=== PATIENT | male | born 1980 | race Two or more races ===

== ENCOUNTER 2021-03-16 10:49 | Outpatient (REF) | payer BC, SELFPAY ==
[2021-03-16 12:00] LABS: MANUAL DIFF FLAG NO
[2021-03-16 12:56] LABS: Eosinophils Absolute Auto 0.3 X10*3/uL (0.0-0.4); Hematocrit 43.6 % (42.0-52.0); Hemoglobin 13.9 g/dl (14.0-18.0); Imm Gran Abs Auto 0.02 X10*3/uL (0.00-0.03); Imm Gran Pct Auto 0.3 % (0.0-0.4); Lymphocytes Absolute Auto 2.5 X10*3/uL (1.2-4.9); Lymphocytes Percent Auto 39.3 % (20-40); Mean Corpuscular HGB Conc 31.9 g/dl (31.0-36.0); Mean Corpuscular Hemoglobin 28.7 pg (27.0-33.0); Mean Corpuscular Volume 90.1 fL (80.0-98.0); Mean Platelet Volume 9.9 fL (9.4-12.4); Monocytes Absolute Auto 0.2 X10*3/uL (0.1-1.2); Monocytes Percent Auto 3.2 % (2-11); Neutrophils Absolute Auto 3.3 x10*3/uL (2.0-8.3); Neutrophils Percent Auto 52.2 % (45-73); Platelet Count 341 X10*3/uL (160-400); Red Blood Count 4.84 X10*6/uL (4.60-5.80); Red Cell Distribution Width 12.4 % (11.0-16.0); White Blood Count 6.2 X10*3/uL (4.8-10.8)
[2021-03-16 13:28] LABS: Alanine Aminotransferase 12 U/L (0-40); Albumin Level 4.1 g/dL (3.5-5.0); Alkaline Phosphatase 74 U/L (39-117); Anion Gap 12 (12-20); Aspartate Amino Transferase 15 U/L (5-37); Bilirubin Total 0.3 mg/dL (0.0-1.0); Blood Urea Nitrogen 17 mg/dL (9-16); C Reactive Protein 0.82 mg/dL (< or = 0.50); Calcium 9.9 mg/dL (8.4-10.2); Carbon Dioxide 27 mmol/L (22-29); Chloride 105 mmol/L (96-108); Estimated Glomerular Filt Rate > 60; Glucose Random 88 mg/dL (60-115); Potassium 5.2 mmol/L (3.3-5.1); Sodium 139 mmol/L (135-145)
[2021-03-16 13:38] LABS: Erythrocyte Sedimentation Rate 8 MM/HR (0-15)
[2021-03-18 15:41] LABS: TS Negative Control Passed; TS Panel A 0; TS Panel B 0; TS Positive Control Passed; TSpotTB Negative (Negative)
[2021-03-19 07:57] LABS: HBS Num1 0.31 mIU/mL (0-7.99); HBc Num1 0.07 S/CO (0.00-0.79); HBsAGNum1 0.21 S/CO (0.00-0.99); Hepatitis B Core Antibody Nonreactive (Nonreactive); Hepatitis B Surface Antigen Negative (Negative); ~HepC Num1 0.24 S/CO (0.00-0.79); ~Hepatitis B Surface Antibody NONREACTIVE (Nonreactive); ~Hepatitis C Antibody Nonreactive (Nonreactive)
[2021-03-21 07:27] LABS: Hepatitis A Antibody IgM 0.16 Index (0-0.79); ~Hepatitis A Antibody IgM Nonreactive (Nonreactive)
== END 2021-03-16 10:50 | disposition home or self-care (01) ==
LOC: HO.LAB 10:49
PROVIDERS: PCP Internal Medicine Geriatric Medicine; Visit Provider Nurse Practitioner Family
DX: M05.9 Rheumatoid arthritis with rheumatoid factor, unspecified (principal)
CPT/HCPCS: 36415; 80053; 85025; 85652; 86140; 86481; 86704; 86706; 86709; 86803; 87340

== ENCOUNTER → 2021-07-11 09:19 | Outpatient (BNVA) | payer BC, SELFPAY | PROVIDERS: PCP Internal Medicine Geriatric Medicine; Visit Provider Nurse Practitioner Family | DX: M05.9 Rheumatoid arthritis with rheumatoid factor, unspecified (principal) ==

== ENCOUNTER 2021-12-17 13:56 | Outpatient (REF) | payer BC, SELFPAY ==
--- NOTE | ~2021-12-17 | XR_ITS ---
EXAMINATION: X-RAY RIGHT HAND X-RAY LEFT HAND CLINICAL INFORMATION: Rheumatoid arthritis. COMPARISON: Radiograph of each hand dated from 07/08/2017. TECHNIQUE: 3 views of each hand. FINDINGS: Right hand: Redemonstration of moderate to severe narrowing of the radiocarpal joint space with associated sclerotic changes and subchondral cyst formation, not significantly changed when compared to 07/08/2017. A marginal erosion along the ulnar surface of the triquetrum is again noted. No acute fracture or dislocation. Soft tissues are unremarkable. Left hand: Mild to moderate narrowing of the radiocarpal joint space, slightly progressed when compared to 07/08/2017. New erosion along the ulnar surface of the triquetrum. No acute fracture or dislocation. Soft tissues are unremarkable. XR/XR hand LT min 3V IMPRESSION: RIGHT HAND: No significant change when compared to 07/08/2017. LEFT HAND: 1. New erosion along the ulnar surface of the triquetrum. 2. Mild to moderate narrowing of the radiocarpal joint space, slightly progressed when compared to 07/08/2017.
--- NOTE | ~2021-12-17 | XR_ITS ---
EXAMINATION: X-RAY BILATERAL FEET CLINICAL INFORMATION: Rheumatoid arthritis. COMPARISON: X-ray bilateral feet 07/07/2017. TECHNIQUE: 3 views of each foot. FINDINGS: Right foot: There is no acute fracture or dislocation. Joint spaces are maintained. No periarticular erosion. Soft tissues are unremarkable. Left foot: Increased loss of bone mineralization within the anterior calcaneus. Redemonstration of nonspecific lucencies and distortion at the head of the third metatarsal bone, stable. No displaced fractures. No subluxation. Normal soft tissues. XR/XR foot RT min 3V IMPRESSION: RIGHT FOOT: No acute fracture or dislocation. No periarticular erosion. LEFT FOOT: 1. Mild loss of bone mineralization within the anterior calcaneus, new since prior. 2. Redemonstration of nonspecific lucencies and distortion at the head of the third metatarsal bone, possibly related with a prior fracture.
--- NOTE | ~2021-12-17 | XR_ITS ---
EXAMINATION: X-RAY BILATERAL FEET CLINICAL INFORMATION: Rheumatoid arthritis. COMPARISON: X-ray bilateral feet 07/07/2017. TECHNIQUE: 3 views of each foot. FINDINGS: Right foot: There is no acute fracture or dislocation. Joint spaces are maintained. No periarticular erosion. Soft tissues are unremarkable. Left foot: Increased loss of bone mineralization within the anterior calcaneus. Redemonstration of nonspecific lucencies and distortion at the head of the third metatarsal bone, stable. No displaced fractures. No subluxation. Normal soft tissues. XR/XR foot LT min 3V IMPRESSION: RIGHT FOOT: No acute fracture or dislocation. No periarticular erosion. LEFT FOOT: 1. Mild loss of bone mineralization within the anterior calcaneus, new since prior. 2. Redemonstration of nonspecific lucencies and distortion at the head of the third metatarsal bone, possibly related with a prior fracture.
--- NOTE | ~2021-12-17 | XR_ITS ---
EXAMINATION: X-RAY RIGHT HAND X-RAY LEFT HAND CLINICAL INFORMATION: Rheumatoid arthritis. COMPARISON: Radiograph of each hand dated from 07/08/2017. TECHNIQUE: 3 views of each hand. FINDINGS: Right hand: Redemonstration of moderate to severe narrowing of the radiocarpal joint space with associated sclerotic changes and subchondral cyst formation, not significantly changed when compared to 07/08/2017. A marginal erosion along the ulnar surface of the triquetrum is again noted. No acute fracture or dislocation. Soft tissues are unremarkable. Left hand: Mild to moderate narrowing of the radiocarpal joint space, slightly progressed when compared to 07/08/2017. New erosion along the ulnar surface of the triquetrum. No acute fracture or dislocation. Soft tissues are unremarkable. XR/XR hand RT min 3V IMPRESSION: RIGHT HAND: No significant change when compared to 07/08/2017. LEFT HAND: 1. New erosion along the ulnar surface of the triquetrum. 2. Mild to moderate narrowing of the radiocarpal joint space, slightly progressed when compared to 07/08/2017.
[2021-12-17 15:03] LABS: MANUAL DIFF FLAG NO
[2021-12-17 15:13] LABS: Basophils Percent Auto 0.1 % (0-2); Eosinophils Absolute Auto 0.5 X10*3/uL (0.0-0.4); Eosinophils Percent Auto 6.1 % (0-4); Hematocrit 39.9 % (42.0-52.0); Hemoglobin 13.5 g/dl (14.0-18.0); Imm Gran Abs Auto 0.02 X10*3/uL (0.00-0.03); Imm Gran Pct Auto 0.3 % (0.0-0.4); Lymphocytes Absolute Auto 3.5 X10*3/uL (1.2-4.9); Lymphocytes Percent Auto 46.4 % (20-40); Mean Corpuscular HGB Conc 33.8 g/dl (31.0-36.0); Mean Corpuscular Hemoglobin 30.1 pg (27.0-33.0); Mean Corpuscular Volume 88.9 fL (80.0-98.0); Mean Platelet Volume 9.5 fL (9.4-12.4); Monocytes Absolute Auto 0.2 X10*3/uL (0.1-1.2); Monocytes Percent Auto 2.2 % (2-11); Neutrophils Absolute Auto 3.4 x10*3/uL (2.0-8.3); Neutrophils Percent Auto 44.9 % (45-73); Platelet Count 311 X10*3/uL (160-400); Red Blood Count 4.49 X10*6/uL (4.60-5.80); Red Cell Distribution Width 13.2 % (11.0-16.0); White Blood Count 7.6 X10*3/uL (4.8-10.8)
[2021-12-17 15:44] LABS: Alanine Aminotransferase 12 U/L (0-40); Alkaline Phosphatase 72 U/L (39-117); Anion Gap 13 (12-20); Aspartate Amino Transferase 17 U/L (5-37); Bilirubin Total 0.3 mg/dL (0.0-1.0); Blood Urea Nitrogen 19 mg/dL (9-16); C Reactive Protein 1.14 mg/dL (< or = 0.50); Calcium 9.4 mg/dL (8.4-10.2); Carbon Dioxide 25 mmol/L (22-29); Chloride 105 mmol/L (96-108); Estimated Glomerular Filt Rate > 60; Glucose Random 88 mg/dL (60-115); Potassium 4.8 mmol/L (3.3-5.1); Sodium 138 mmol/L (135-145); Total Protein 7.6 g/dL (6.5-8.0)
[2021-12-17 16:01] LABS: Erythrocyte Sedimentation Rate 9 MM/HR (0-15)
[2021-12-18 04:44] LABS: HBS Num1 1.09 mIU/mL (0-7.99); HBc Num1 0.14 S/CO (0.00-0.79); Hepatitis B Core Antibody Nonreactive (Nonreactive); Hepatitis B Surface Antigen Negative (Negative); ~HepC Num1 0.19 S/CO (0.00-0.79); ~Hepatitis B Surface Antibody NONREACTIVE (Nonreactive); ~Hepatitis C Antibody Nonreactive (Nonreactive)
[2021-12-19 04:07] LABS: Hepatitis A Antibody IgM 0.26 Index (0-0.79); ~Hepatitis A Antibody IgM Nonreactive (Nonreactive)
[2021-12-19 23:01] LABS: TS Negative Control Passed; TS Panel A 0; TS Panel B 0; TS Positive Control Passed; TSpotTB Negative (Negative)
== END 2021-12-17 13:57 | disposition home or self-care (01) ==
LOC: HO.LAB 13:56
PROVIDERS: PCP Internal Medicine Geriatric Medicine; Visit Provider Nurse Practitioner Family
DX: Z11.1 Encounter for screening for respiratory tuberculosis (principal); M05.9 Rheumatoid arthritis with rheumatoid factor, unspecified; Z79.899 Other long term (current) drug therapy
CPT/HCPCS: 36415; 73130; 73630; 80053; 85025; 85652; 86140; 86481; 86704; 86706; 86709; 86803; 87340

== ENCOUNTER 2022-03-29 10:15 | Outpatient (REF) | payer BC, SELFPAY ==
[2022-03-29 11:32] LABS: MANUAL DIFF FLAG NO
[2022-03-29 11:40] LABS: Basophils Percent Auto 0.1 % (0-2); Eosinophils Absolute Auto 0.4 X10*3/uL (0.0-0.4); Eosinophils Percent Auto 5.4 % (0-4); Hematocrit 41.9 % (42.0-52.0); Hemoglobin 13.5 g/dl (14.0-18.0); Imm Gran Abs Auto 0.02 X10*3/uL (0.00-0.03); Imm Gran Pct Auto 0.3 % (0.0-0.4); Lymphocytes Absolute Auto 2.6 X10*3/uL (1.2-4.9); Mean Corpuscular HGB Conc 32.2 g/dl (31.0-36.0); Mean Corpuscular Hemoglobin 28.8 pg (27.0-33.0); Mean Corpuscular Volume 89.5 fL (80.0-98.0); Mean Platelet Volume 9.7 fL (9.4-12.4); Monocytes Absolute Auto 0.2 X10*3/uL (0.1-1.2); Monocytes Percent Auto 2.6 % (2-11); Neutrophils Absolute Auto 3.8 x10*3/uL (2.0-8.3); Neutrophils Percent Auto 54.6 % (45-73); Platelet Count 288 X10*3/uL (160-400); Red Blood Count 4.68 X10*6/uL (4.60-5.80); White Blood Count 6.9 X10*3/uL (4.8-10.8)
[2022-03-29 12:19] LABS: Alanine Aminotransferase 16 U/L (0-40); Aspartate Amino Transferase 15 U/L (5-37); C Reactive Protein 0.74 mg/dL (< or = 0.50); Estimated Glomerular Filt Rate > 60
[2022-03-29 12:28] LABS: Erythrocyte Sedimentation Rate 9 MM/HR (0-15)
== END 2022-03-29 10:16 | disposition home or self-care (01) ==
LOC: HO.LAB 10:15
PROVIDERS: PCP Internal Medicine Geriatric Medicine; Visit Provider Nurse Practitioner Family
DX: M05.9 Rheumatoid arthritis with rheumatoid factor, unspecified (principal); Z79.899 Other long term (current) drug therapy
CPT/HCPCS: 36415; 82565; 84450; 84460; 85025; 85652; 86140

== ENCOUNTER 2023-07-07 10:00 | Outpatient (REF) | payer BC, SELFPAY ==
[2023-07-07 11:30] LABS: MANUAL DIFF FLAG NO
[2023-07-07 11:46] LABS: Basophils Percent Auto 0.2 % (0-2); Eosinophils Absolute Auto 0.5 X10*3/uL (0.0-0.4); Eosinophils Percent Auto 5.1 % (0-4); Hematocrit 41.4 % (42.0-52.0); Hemoglobin 13.9 g/dl (14.0-18.0); Imm Gran Abs Auto 0.04 X10*3/uL (0.00-0.03); Imm Gran Pct Auto 0.4 % (0.0-0.4); Lymphocytes Absolute Auto 3.5 X10*3/uL (1.2-4.9); Lymphocytes Percent Auto 35.6 % (20-40); Mean Corpuscular HGB Conc 33.6 g/dl (31.0-36.0); Mean Corpuscular Hemoglobin 29.7 pg (27.0-33.0); Mean Corpuscular Volume 88.5 fL (80.0-98.0); Mean Platelet Volume 9.7 fL (9.4-12.4); Monocytes Absolute Auto 0.3 X10*3/uL (0.1-1.2); Neutrophils Absolute Auto 5.4 x10*3/uL (2.0-8.3); Neutrophils Percent Auto 55.7 % (45-73); Platelet Count 371 X10*3/uL (160-400); Red Blood Count 4.68 X10*6/uL (4.60-5.80); Red Cell Distribution Width 12.9 % (11.0-16.0); White Blood Count 9.7 X10*3/uL (4.8-10.8)
[2023-07-07 11:51] LABS: Rheumatoid Factor 92.6 IU/mL (<15.0)
[2023-07-07 11:59] LABS: Anion Gap 12 (12-20); Blood Urea Nitrogen 17 mg/dL (9-16); C Reactive Protein 1.29 mg/dL (< or = 0.50); Calcium 9.7 mg/dL (8.4-10.2); Carbon Dioxide 26 mmol/L (22-29); Chloride 107 mmol/L (96-108); Estimated Glomerular Filt Rate > 60; Glucose Random 63 mg/dL (60-115); Potassium 4.2 mmol/L (3.3-5.1); Sodium 141 mmol/L (135-145)
[2023-07-07 12:56] LABS: Erythrocyte Sedimentation Rate 8 MM/HR (0-15)
== END 2023-07-07 10:01 | disposition home or self-care (01) ==
LOC: HO.CHCLDS 10:00
PROVIDERS: Visit Provider Internal Medicine Geriatric Medicine
DX: M05.9 Rheumatoid arthritis with rheumatoid factor, unspecified (principal); Z28.21 Immunization not carried out because of patient refusal
CPT/HCPCS: 36415; 80048; 85025; 85652; 86140; 86431

== ENCOUNTER 2023-08-25 14:14 | Outpatient (AMB) | payer BC, SELFPAY ==
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
[2023-08-25 14:19] VITALS: BP 110/64; PULSE 80; O2SAT 97; BMI 21.5
== END 2023-08-25 14:38 | disposition home or self-care (01) ==
PROVIDERS: PCP Internal Medicine Geriatric Medicine; Visit Provider Student in an Organized Health Care Education/Training Program
DX: M05.79 Rheumatoid arthritis with rheumatoid factor of multiple sites without organ or systems involvement (principal)
CPT/HCPCS: 99215

== ENCOUNTER → 2023-08-25 14:14 | Outpatient (BNVA) | payer BC, SELFPAY | PROVIDERS: PCP Internal Medicine Geriatric Medicine; Visit Provider Student in an Organized Health Care Education/Training Program ==

== ENCOUNTER 2023-09-01 10:37 | Outpatient (REF) | payer BC, SELFPAY ==
[2023-09-01 11:03] LABS: MANUAL DIFF FLAG NO
[2023-09-01 11:58] LABS: Basophils Percent Auto 0.1 % (0-2); Eosinophils Absolute Auto 0.4 X10*3/uL (0.0-0.4); Eosinophils Percent Auto 4.2 % (0-4); Hematocrit 41.6 % (42.0-52.0); Hemoglobin 13.5 g/dl (14.0-18.0); Imm Gran Abs Auto 0.02 X10*3/uL (0.00-0.03); Imm Gran Pct Auto 0.2 % (0.0-0.4); Lymphocytes Absolute Auto 3.4 X10*3/uL (1.2-4.9); Lymphocytes Percent Auto 36.3 % (20-40); Mean Corpuscular HGB Conc 32.5 g/dl (31.0-36.0); Mean Corpuscular Hemoglobin 29.2 pg (27.0-33.0); Mean Corpuscular Volume 89.8 fL (80.0-98.0); Mean Platelet Volume 9.8 fL (9.4-12.4); Monocytes Absolute Auto 0.2 X10*3/uL (0.1-1.2); Monocytes Percent Auto 2.5 % (2-11); Neutrophils Absolute Auto 5.3 x10*3/uL (2.0-8.3); Neutrophils Percent Auto 56.7 % (45-73); Platelet Count 346 X10*3/uL (160-400); Red Blood Count 4.63 X10*6/uL (4.60-5.80); Red Cell Distribution Width 13.2 % (11.0-16.0); White Blood Count 9.4 X10*3/uL (4.8-10.8)
[2023-09-01 12:38] LABS: Erythrocyte Sedimentation Rate 7 MM/HR (0-15)
[2023-09-01 12:41] LABS: Alanine Aminotransferase 11 U/L (0-40); Albumin Level 3.7 g/dL (3.5-5.0); Alkaline Phosphatase 72 U/L (39-117); Anion Gap 9 (12-20); Aspartate Amino Transferase 13 U/L (5-37); Bilirubin Total 0.4 mg/dL (0.0-1.0); Blood Urea Nitrogen 18 mg/dL (9-16); C Reactive Protein 0.83 mg/dL (< or = 0.50); Carbon Dioxide 27 mmol/L (22-29); Chloride 108 mmol/L (96-108); Estimated Glomerular Filt Rate > 60; Glucose Random 73 mg/dL (60-115); Sodium 140 mmol/L (135-145); Total Protein 7.6 g/dL (6.5-8.0)
[2023-09-01 12:56] LABS: HBS Num1 0.26 mIU/mL (0-7.99); HBc Num1 0.13 S/CO (0.00-0.79); HBsAGNum1 0.45 S/CO (0.00-0.99); Hepatitis A Antibody IgM 0.21 Index (0-0.79); Hepatitis B Core Antibody Nonreactive (Nonreactive); Hepatitis B Surface Antigen Negative (Negative); ~Hepatitis A Antibody IgM Nonreactive (Nonreactive); ~Hepatitis B Surface Antibody NONREACTIVE (Nonreactive); ~Hepatitis C Antibody Nonreactive (Nonreactive)
[2023-09-04 02:18] LABS: TS Negative Control Passed; TS Panel A 0; TS Panel B 0; TS Positive Control Passed; TSpotTB Negative (Negative)
== END 2023-09-01 10:38 | disposition home or self-care (01) ==
LOC: HO.LAB 10:37
PROVIDERS: PCP Internal Medicine Geriatric Medicine; Visit Provider Student in an Organized Health Care Education/Training Program
DX: Z11.59 Encounter for screening for other viral diseases (principal); Z11.7 Encounter for testing for latent tuberculosis infection; M05.9 Rheumatoid arthritis with rheumatoid factor, unspecified
CPT/HCPCS: 36415; 80053; 85025; 85652; 86140; 86481; 86704; 86706; 86709; 86803; 87340

== ENCOUNTER 2023-12-01 13:38 | Outpatient (AMB) | payer BC, SELFPAY ==
--- NOTE | 2023-12-01 13:42 | A.OFFVIS_ITS ---
Vital Signs 12/01/23 13:46 Height 5 ft 8 in Weight 145 lb 1.027 oz BMI 22.1 BP 112/60 Blood Pressure Location Rt brachial Position Sitting Pulse 81 Pulse Source Pulse Oximeter Pulse Oximetry (%) 98 Oxygen Delivery Method Room Air Intake Visit Reasons: RA/CM Intake Note: Patient presents for RA. Allergies adalimumab [From Humira] Allergy (Verified 12/01/23 13:46) Rash Medication List - Last Reconciled 12/01/23 by Maria Teresa Acosta MD acetaminophen ER (Tylenol Arthritis Pain) 650 mg PO Q12H Cimzia (certolizumab pegol) 200 mg subcut Q2W NS HPI Comments Details: This is a 43-year-old male with seropositive RA who presents for follow-up. He started Cimzia after last visit. Does not report any side effects. States that he feels much better overall. No complaints today PFSH Medical History History of nephrectomy, unilateral Family History Mother Migraine Father Diabetes Hypertension Social History Household Members: Family Housing: House Alcohol intake: never Patient Tobacco Use Status: Never used Tobacco service: No Review of Systems [facility] Denies arthralgias and Denies joint swelling Physical Exam Vital Signs: Last Vital Signs Pulse 81 12/01/23 13:46 BP 112/60 12/01/23 13:46 Pulse Ox 98 12/01/23 13:46 Oxygen Delivery Method Room Air 12/01/23 13:46 BMI result Body Mass Index 22.1 Const General: cooperative, healthy appearing and comfortable Nutritional Appearance: average body habitus Orientation/consciousness: patient oriented x3 Limitations: no limitations HEENT Head: Yes normocephalic and Yes atraumatic Mouth: moist mucous membranes Resp Effort & Inspection: normal respiratory effort and able to speak in complete sentences Auscultation: clear to auscultation bilaterally Cardio Rate: regular rate Rhythm: regular rhythm Skin General skin exam: no rashes or lesions noted Neuro General: patient oriented x3 Extrem Other: Reduced dorsiflexion of both wrists (chronic) No wrist tenderness or swelling bilaterally No MCP or PIP tenderness bilaterally No knee pain with flexion-extension bilaterally No ankle swelling or tenderness bilaterally Negative MTP squeeze test bilaterally Results Reviewed Results Reviewed: 12/17/2021 EXAMINATION: X-RAY RIGHT HAND X-RAY LEFT HAND CLINICAL INFORMATION: Rheumatoid arthritis.? COMPARISON: Radiograph of each hand dated from 07/08/2017.? TECHNIQUE: 3 views of each hand.? FINDINGS: Right hand: Redemonstration of moderate to severe narrowing of the radiocarpal joint space with associated sclerotic changes and subchondral cyst formation, not significantly changed when compared to 07/08/2017. A marginal erosion along the ulnar surface of the triquetrum is again noted. No acute fracture or dislocation. Soft tissues are unremarkable. Left hand: Mild to moderate narrowing of the radiocarpal joint space, slightly progressed when compared to 07/08/2017. New erosion along the ulnar surface of the triquetrum. No acute fracture or dislocation. Soft tissues are unremarkable.? XR/XR hand RT min 3V IMPRESSION: RIGHT HAND: No significant change when compared to 07/08/2017. ? LEFT HAND: 1.? New erosion along the ulnar surface of the triquetrum. 2.? Mild to moderate narrowing of the radiocarpal joint space, slightly progressed when compared to 07/08/2017. 12/17/2021 EXAMINATION: X-RAY BILATERAL FEET CLINICAL INFORMATION: Rheumatoid arthritis.? COMPARISON: X-ray bilateral feet 07/07/2017.? TECHNIQUE: 3 views of each foot.? FINDINGS: Right foot: There is no acute fracture or dislocation. Joint spaces are maintained. No periarticular erosion. Soft tissues are unremarkable. Left foot: Increased loss of bone mineralization within the anterior calcaneus. Redemonstration of nonspecific lucencies and distortion at the head of the third metatarsal bone, stable. No displaced fractures. No subluxation. Normal soft tissues.? XR/XR foot LT min 3V IMPRESSION: RIGHT FOOT: No acute fracture or dislocation. No periarticular erosion. ? LEFT FOOT: 1.? Mild loss of bone mineralization within the anterior calcaneus, new since prior. 2.? Redemonstration of nonspecific lucencies and distortion at the head of the third metatarsal bone, possibly related with a prior fracture. ? Assessment & Plan Assessment & Plan (1) Seropositive rheumatoid arthritis: Comment: ++RF +++CCP Methotrexate: June 2017-November 2017. ineffective & DC due to solitary kidney Humira: October 2018-took for 3 months, when restarted broke out in diffuse rash Enbrel: July 2019-tolerating okay, stop taking then denied by insurance company when represcribed Cimzia: March 2021-July 2021-restarted November 2021-DC summer 2022 lost to follow up Cimzia restarted 08/2023 effective Code(s): M05.9 - Rheumatoid arthritis with rheumatoid factor, unspecified Category: Medical Plan: This is a 43-year-old male with seropositive erosive RA who presents for follow- up. Has been on Cimzia regularly for the last 3 months now. There is significant improvement since Cimzia was started. Continue Cimzia 200 mg subcutaneously every other week Advised patient to get his x-rays done Labs before next visit in 6 months (2) High risk medication use: Code(s): Z79.899 - Other senior care (current) drug therapy Category: Medical Plan: Side effects of Cimzia were discussed with the patient in detail including increased risk of infection, demyelinating disease, reactivation of latent TB, possible increased risk of solid and skin tumors. Patient fully aware. Advised patient to seek medical care [facility] if patient has an infection and advised patient to stop the medication until the infection is resolved. Plan I spent 26 minutes reviewing patient's chart, evaluating patient, ordering diagnostic workup, counseling patient and documenting in the chart Orders: Orders C Reactive Protein 6 Months M05.9 - Rheumatoid arthritis with rheumatoid factor, unspecified Complete Blood Count Auto Diff 6 Months M05.9 - Rheumatoid arthritis with rheumatoid factor, unspecified Comprehensive Met. Panel 6 Months M05.9 - Rheumatoid arthritis with rheumatoid factor, unspecified Erythrocyte Sedimentation Rate 6 Months M05.9 - Rheumatoid arthritis with r heumatoid factor, unspecified Medications: Changed From Cimzia (certolizumab pegol) Loading dose: 400 mg at week 0, 2 and 4 Maintenance: 200 mg every other week. 6 ea 2RF NS M05.9 - Rheumatoid arthritis with rheumatoid factor, unspecified To Cimzia (certolizumab pegol) 200 mg subcut Q2W 2 ea 5RF NS M05.9 - Rheumatoid arthritis with rheumatoid factor, unspecified Coding Level of Care Code Est Pt Level 4 (76821) Diagnoses Seropositive rheumatoid arthritis M05.9 High risk medication use Z79.899
[2023-12-01 13:46] VITALS: BP 112/60; PULSE 81; O2SAT 98; BMI 22.1
== END 2023-12-01 14:10 | disposition home or self-care (01) ==
PROVIDERS: PCP Internal Medicine Geriatric Medicine; Visit Provider Student in an Organized Health Care Education/Training Program
DX: M05.79 Rheumatoid arthritis with rheumatoid factor of multiple sites without organ or systems involvement (principal); Z79.899 Other long term (current) drug therapy
CPT/HCPCS: 99214

== ENCOUNTER → 2023-12-01 13:38 | Outpatient (BNVA) | payer BC, SELFPAY | PROVIDERS: PCP Internal Medicine Geriatric Medicine; Visit Provider Student in an Organized Health Care Education/Training Program ==

== ENCOUNTER 2024-08-18 09:25 | Outpatient (REF) | payer BC, SELFPAY ==
--- OUTSIDE RECORDS SUMMARY | 2024-08-18 10:23 | XMS_ITS | Data Portability ---
Author Organization [facility], [id number] Address [address] [place] [address] Assessment No assessment recorded. Plan of Treatment Reminders Order Date Submit Date Provider Last Modified By Organization Details Last Modified Time Details Appointments None record ed. Lab None record ed. Referral None record ed. Procedures None record ed. Surgeries None record ed. Imaging None record ed. Medication Orders None record ed. Patient TargetsNo targets recorded. Patient InstructionsNo instructions recorded. Reason for Referral None Reported. Medical Equipment None Reported. Vitals None Recorded Social History None recorded. Functional Status None recorded. Mental Status None recorded. Family History Nothing Reported. Medical History No medical history recorded. Past Encounters Encounter ID Performer Location Encounter Start Date Encounter Closed Date Diagnosis/Indication Diagnosis SNOMED-CT Code Diagnosis ICD10 Code Diagnosis Note [id number] [address] [address] 03/02/2021 12:53:40 03/02/2021 15:10:50 [id number] [address] 01/16/2018 11:16:30 01/16/2018 12:55:39 Health Concerns Section Related Observation LastModified by Organization Detai ls LastModified Time None Recorded Concern Status LastModified by Organization Details LastModified Time None Recorded Advance Directives Directive None Recorded Payers Insurance Date Sequence Insurance Name Policy Number Policy Guevara Covered Member ID Guevara Member ID Guarantor Name 07/05/2022 1 [facility] [id number] Nain Vu [id number] Nain Juarez 07/05/2022 OC-PAY AT TIME OF SERVICE 2022 Nain Elias mos PAY AT TIME OF SERVICE 20 PAY AT TIME OF SERVICE 20 Nain Juarez
[2024-08-18 10:39] LABS: Baso%MD 0.1 %; Eos%MD 4.6 %; Hematocrit 40.1 % (42.0-52.0); Hemoglobin 13.2 g/dl (14.0-18.0); IG%MD 0.1 %; Lymph%MD 37.7 %; Mean Corpuscular HGB Conc 32.9 g/dl (31.0-36.0); Mean Corpuscular Hemoglobin 29.4 pg (27.0-33.0); Mean Corpuscular Volume 89.3 fL (80.0-98.0); Mean Platelet Volume 9.7 fL (9.4-12.4); Mono%MD 4.3 %; Neut%MD 53.2 %; Platelet Count 329 X10*3/uL (160-400); Red Blood Count 4.49 X10*6/uL (4.60-5.80); Red Cell Distribution Width 13.4 % (11.0-16.0); White Blood Count 7.6 X10*3/uL (4.8-10.8)
[2024-08-18 11:07] LABS: Alanine Aminotransferase 12 U/L (0-40); Albumin Level 3.8 g/dL (3.5-5.0); Alkaline Phosphatase 68 U/L (39-117); Anion Gap 10 (12-20); Aspartate Amino Transferase 22 U/L (5-37); Bilirubin Total 0.3 mg/dL (0.0-1.0); Blood Urea Nitrogen 15 mg/dL (9-16); C Reactive Protein 0.85 mg/dL (< or = 0.50); Carbon Dioxide 26 mmol/L (22-29); Chloride 109 mmol/L (96-108); Estimated Glomerular Filt Rate > 60; Glucose Random 88 mg/dL (60-115); Sodium 141 mmol/L (135-145); Total Protein 7.2 g/dL (6.5-8.0)
[2024-08-18 11:17] LABS: Erythrocyte Sedimentation Rate 8 MM/HR (0-15)
[2024-08-18 11:19] LABS: Band Neutrophils Percent 0 % (3-5); Eosinophils Absolute Manual 0.2 X10*3/uL (0.0-0.4); Eosinophils Percent Manual 3 % (0-4); Lymphocytes Absolute Manual 2.7 X10*3/uL (1.2-4.9); Lymphocytes Percent Manual 35 % (20-40); Monocytes Absolute Manual 0.2 X10*3/uL (0.1-1.2); Monocytes Percent Manual 3 % (2-11); Neutrophils Absolute Manual 4.5 X10*3/uL (2.0-8.3); Neutrophils Percent Manual 59 % (45-73)
[2024-08-18 11:20] LABS: Platelet Estimate NORMAL (NORMAL); Platelet Morphology Comment NORMAL; RBC Morphology NORMAL
== END 2024-08-18 09:26 | disposition home or self-care (01) ==
LOC: HO.LAB 09:25
PROVIDERS: PCP Internal Medicine Geriatric Medicine; Visit Provider Student in an Organized Health Care Education/Training Program
DX: M05.9 Rheumatoid arthritis with rheumatoid factor, unspecified (principal)
CPT/HCPCS: 36415; 80053; 85007; 85027; 85652; 86140

== ENCOUNTER 2024-09-07 08:12 | Outpatient (AMB) | payer BC, SELFPAY ==
--- OUTSIDE RECORDS SUMMARY | 2024-09-07 08:17 | XMS_ITS | Encounter Summary ---
Author Organization [employer] Address [address] [facility] [address] [place] [address] Care Team Providers Care Rock Singer Name Role Phone Name, Sixto AMARO Primary Care Provider [phone] Reason for Visit * Reason Comments Pre-visit Planning SDOH screening negat sultana and Tobacco screening negative Encounter Details Date Type Department Care Team ([facility] st Contact Info) Description 09/06/2024 Patient Outreach [facility] [address] [place] [phone] Name, MD Sixto [address] [place] [address] Pre-visit Planning (SDOH screening negative and Tobacco screening negative) Social History Tobacco Use Types Packs/Day Years Used Date Smoking Tobacco: Never Passive Smoke Exposure: Never Smokeless Tobacco: Never Alcohol Use Standard Drinks/Week Comments Yes 0 (1 standard drink = 0.6 oz pur e alcohol) occassional Depression Answer Date Recorded Patient Health Questionnaire-9 Score 0 07/07/2023 Patient Health Questionnaire-9 Score 0 07/07/2023 Last PHQ-9: Questionnaire Data Not on file 0 07/07/2023 Housing Stability Answer Date Recorded What is your housing situation today? I have miller mclaughlin 09/06/[address] you li ve. Do you have problems with any of the following? None of the above 09/06/2024 Food Insecurity Answer Date Recorded Within the past 12 months, y ou worried that your food would run out before you got money to buy more: Never True 09/06/2024 Within the past 12 months,th e food you bought just didn't last and you didn't have enough money to get more: Never True Transportation Answer Date Recorded In the past 12 months, has l ack of transportation kept you from medical appts, meetings, work or from getting things needed for daily living? No 09/06/2024 Utilities Answer Date Recorded In the past 12 months, has t he electric, gas, oil or water company threatened to shut off services in your home? No 09/06/2024 Depression Answer Date Recorded Patient Health Questionnaire-2 Score 0 07/07/2023 Internet Access Answer Date Recorded Internet Access Q1 Yes 09/06/2024 Internet Access Q2 Not on file 09/06/2024 Sex and Gender Information Value Date Recorded Sex Assigned at Male 12/24/2021 10:33 AM EDT Legal Sex Male 10:33 AM EDT Gender Identity Male 12/24/2021 10:33 AM EDT Sexual Orientation Straight 12/24/2021 10 :33 AM EDT documented as of this encounter Progress Notes * Paige Wells - 09/06/2024 2:14 PM EDT CC Paige whiteside successful outbound call to patient for pre-visit planning. Patient name and confirmed. Patient confirms appt date and time, and has transportation arrangements. Biggest concern for appointment at this time is no concerns. Patient advised to bring to appointment a photo id and insurance card. Appropriate screenings completed in anticipation of appointment. documented in this encounter Plan of Treatment Upcoming Encounters Date Type Department Care Team (Late st Contact Info) Description 09/14/2024 9:30 AM EDT Office Visit [facility] [address] [place] [address] NameSixto MD [address] [place] [address] documented as of this encounter Visit Diagnoses Not on filedocumented in this encounter Additional Health Concerns Assessment Noted Time PHQ-9 Depression Total Score: 0 07/07/19 24 9:25 AM EDT documented as of this encounter Care Teams Rock Singer Relationship Specialty Start Date End Date NameSixto MD [address] [place] [address] PCP - General Family Medicine 05/15/17 documented as of this encounter
--- OUTSIDE RECORDS SUMMARY | 2024-09-07 08:17 | XMS_ITS | Clinical Summary ---
[facility] Organization [facility] Address [address] [place] [address] Care Team Providers Care Store Clerk Checker Name Role Phone Unavailable Primary Care Provider Unavailabl e Social History Tobacco Use Types Packs/Day Years Used Date Smoking Tobacco: Never Assessed Sex and Gender Information Value Date Recorded Sex Assigned at Not on file Legal Sex Male 4:39 AM EST Gender Identity Not on file Sexual Orientation Not on file Plan of Treatment Health Maintenance Due Date Last Done Comments DTaP,Tdap,and Td Vaccines (1 - Tdap) 2001 Hepatitis B Vaccines (1 of 3 - 19+ 3-dose series) 2001 Cholesterol Screening (Lipid Panel) 03/25/2023 Depression Screening 03/25/2023 HIV Screening 03/25/2023 Hepatitis C Screening 03/25/2023 Social Influencers of Health Screening 03/25/2023 COVID-19 Vaccine ( - 2023-2 5 season) 2023 Influenza Vaccine (#1) 2024 HIB Vaccines Aged Out No longer eligi ble based on patient's age to complete this topic HPV Vaccines Aged Out No longer eligi ble based on patient's age to complete this topic Hepatitis A Vaccines Aged Out No long er eligible based on patient's age to complete this topic IPV Vaccines Aged Out No longer eligi ble based on patient's age to complete this topic MMR Vaccines Aged Out No longer eligi ble based on patient's age to complete this topic Meningococcal ACWY Vaccine Aged Out N o longer eligible based on patient's age to complete this topic Meningococcal B Vaccine Aged Out No l onger eligible based on patient's age to complete this topic Pneumococcal Vaccine: Pediat rics (0 to 5 Years) and At-Risk Patients (6 to 49 Years) Aged Out No longer eligible b ased on patient's age to complete this topic RSV Immunization Patients Un bertha 20 months Aged Out No longer eligible b ased on patient's age to complete this topic Varicella Vaccines Aged Out No longer eligible based on patient's age to complete this topic
--- OUTSIDE RECORDS SUMMARY | 2024-09-07 08:17 | XMS_ITS | Data Portability ---
Author Organization [facility], [id number] Address [address] [place] [address] Assessment No assessment recorded. Plan of Treatment [...] SNOMED-CT Code Diagnosis ICD10 Code Diagnosis Note [id number] [address] [address] 03/02/2021 12:53:40 03/02/2021 15:10:50 [id number] [address] [address] 01/16/2018 11:16:30 01/16/2018 12:55:39 Health Concerns Section Related Observation LastModified by Organization Detai ls LastModified Time None Recorded Concern Status LastModified by Organization Details LastModified Time None Recorded Advance Directives Directive None Recorded Payers Insurance Date Sequence Insurance Name Policy Number Policy Guevara Covered Member ID Guevara Member ID Guarantor Name 07/05/2022 1 [facility] [id number] Nain Vu [id number] Nain Juarez 07/05/2022 OC-PAY AT TIME OF SERVICE 2022 Nain Elias mos PAY AT TIME OF SERVICE 20 PAY AT TIME OF SERVICE 20 Nain Juarez
--- NOTE | 2024-09-07 08:31 | A.OFFVIS_ITS ---
Vital Signs 09/07/24 08:37 Height 5 ft 8 in Weight 149 lb 7.574 oz BMI 22.7 BP 90/62 Blood Pressure Location Lt brachial Position Sitting Pulse 68 Pulse Source Pulse Oximeter Pulse Oximetry (%) 98 Oxygen Delivery Method Room Air Intake Visit Reasons: RA Intake Note: Patient presents for RA follow up. Allergies adalimumab (From Humira) Allergy (Verified 09/07/24 08:36) Rash HPI Comments Details: Patient is a 44-year-old male with depression/anxiety and seropositive r heumatoid arthritis here today for follow up Interval History: Patient last seen 12/01/[address] Acosta - following up after starting Cimzia a visit prior - doing much better Today, - Continues to do well on the Cimzia Rheumatologic History: ++RF +++CCP Methotrexate: June 2017-November 2017. ineffective & DC due to solitary kidney Humira: October 2018-took for 3 months, when restarted broke out in diffuse rash Enbrel: July 2019-tolerating okay, stop taking then denied by insurance company when represcribed Cimzia: March 2021-July 2021-restarted November 2021-DC summer 2022 lost to follow up Cimzia restarted 08/2023 effective Current Rheumatology Medication(s): Cimzia 200mg SC every 2 weeks PFSH Medical History History of nephrectomy, unilateral Family History Mother Migraine Father Diabetes Hypertension Social History Household Members: Family Housing: House Alcohol intake: never Patient Tobacco Use Status: Never used Tobacco service: No Review of Systems Const Details: Review of Systems Constitutional: Denies fever, chills, weight loss ENT: Denies vision changes, eye pain or eye redness, dental caries, dry mouth GI: Denies nausea, vomiting, diarrhea, abdominal pain, change in BM Pulm: Denies SOB, ALEX, hemoptysis, wheezing Cards: Denies chest pain, palpitations Skin: Denies Raynaud's, rash, nail changes, photosensitivity, ALTO SINGER: Denies headaches, weakness, paresthesias, recurrent falls MSK: as per HPI All other systems reviewed and are unremarkable except noted above Physical Exam Vital Signs: Last Vital Signs Pulse 68 09/07/24 08:37 BP 90/62 09/07/24 08:37 Pulse Ox 98 09/07/24 08:37 Oxygen Delivery Method Room Air 09/07/24 08:37 BMI result Body Mass Index 22.7 Vital signs reviewed Physical Examination CONSTITUITIONAL Patient alert and cooperative. Well appearing and in no apparent painful distress HEENT Conjunctiva and sclera clear. No lymphadenopathy. CHEST/RESPIRATORY SYSTEM Normal respiratory effort and able to speak in complete sentences. Clear to auscultation bilaterally. No crackles, rales, rhonchi, wheezes heard. CARDIAC SYSTEM Regular rate and rhythm. S1 and S2 heard no murmurs. Radial pulses intact bilaterally MSK Hands * Right Hand: Able to make a fist. No swelling or tenderness to palpation of these joints. No deformities noted. * Left Hand: Able to make a fist. No swelling or tenderness to palpation of these joints. No deformities noted. Wrists * Right Wrist: Full ROM. 70 degrees of wrist flexion, 80 degrees of wrist extension. No swelling or TTP * Left Wrist: Full ROM. 70 degrees of wrist flexion, 80 degrees of wrist extension. No swelling or TTP Elbows * Right Elbow: Full ROM. No swelling or TTP. No TTP of the medial and lateral epicondyles * Left Elbow: Full ROM. No swelling or TTP. No TTP of the medial and lateral epicondyles Shoulders * Right shoulder: Full ROM. No swelling noted. No TTP of the AC joint, subacromial bursa or posterior shoulder * Left shoulder: Full ROM. No swelling noted. No TTP of the AC joint, subacromial bursa or posterior shoulder Hips * Right hip: Good ROM. No pain elicited with hip flexion/internal rotation/external rotation * Left hip: Good ROM. No pain elicited with hip flexion/internal rotation/external rotation Hip bursa: No tenderness to palpation bilaterally Knees * Right knee: Full ROM. No swelling noted. No TTP of the knee joint lie or pes anserine bursa * Left knee: Full ROM. No swelling noted. No TTP of the knee joint lie or pes anserine bursa. Ankles * Right ankle: Good ankle dorsiflexion and plantar flexion. No swelling. No TTP of the ankle joint * Left ankle: Good ankle dorsiflexion and plantar flexion. No swelling. No TTP of the ankle joint Feet * Right foot: Negative squeeze test * Left foot: Negative squeeze test Tender points? * No tenderness to palpation of the bilateral trapezius, supraspinatus, anterior costochondral junctions, bilateral suboccipital muscle insertions SKIN No rashes Results Reviewed Results Reviewed: Laboratory Tests 09/01/23 08/18/24 11:02 09:47 WBC 7.6 RBC 4.49 L Hgb 13.2 L Hct 40.1 L Plt Count 329 ESR 8 Sodium 141 Potassium 4.0 Chloride 109 H Carbon Dioxide 26 BUN 15 Creatinine 0.97 AST 22 ALT 12 C-Reactive Protein 0.83 H 0.85 H Rheumatology Labs 11/06/18 07/07/23 12:02 10:07 Rheumatoid Factor 213.5 H 92.6 H SUSAN Screen Negative Infectious serologies 09/01/23 11:02 Hepatitis A IgM Ab Nonreactive Hep Bs Antigen Negative Hep Bs Antibody NONREACTIVE Hep B Core Total Ab Nonreactive Hepatitis C Ab (EIA) Nonreactive TB Test (T-Spot) Com Negative XR Bilateral Hands 11/2021 FINDINGS: Right hand: Redemonstration of moderate to severe narrowing of the radiocarpal joint space with associated sclerotic changes and subchondral cyst formation, not significantly changed when compared to 07/08/2017. A marginal erosion along the ulnar surface of the triquetrum is again noted. No acute fracture or dislocation. Soft tissues are unremarkable. Left hand: Mild to moderate narrowing of the radiocarpal joint space, slightly progressed when compared to 07/08/2017. New erosion along the ulnar surface of the triquetrum. No acute fracture or dislocation. Soft tissues are unremarkable. IMPRESSION: RIGHT HAND: No significant change when compared to 07/08/2017. LEFT HAND: 1. New erosion along the ulnar surface of the triquetrum. 2. Mild to moderate narrowing of the radiocarpal joint space, slightly progressed when compared to 07/08/2017. XRs Bilateral Feet 11/2021 FINDINGS: Right foot: There is no acute fracture or dislocation. Joint spaces are maintained. No periarticular erosion. Soft tissues are unremarkable. Left foot: Increased loss of bone mineralization within the anterior calcaneus. Redemonstration of nonspecific lucencies and distortion at the head of the third metatarsal bone, stable. No displaced fractures. No subluxation. Normal soft tissues. IMPRESSION: RIGHT FOOT: No acute fracture or dislocation. No periarticular erosion. LEFT FOOT: 1. Mild loss of bone mineralization within the anterior calcaneus, new since prior. 2. Redemonstration of nonspecific lucencies and distortion at the head of the third metatarsal bone, possibly related with a prior fracture. Assessment & Plan Assessment & Plan (1) Seropositive rheumatoid arthritis: Comment: ++RF +++CCP Methotrexate: June 2017-November 2017. ineffective & DC due to solitary kidney Humira: October 2018-took for 3 months, when restarted broke out in diffuse rash Enbrel: July 2019-tolerating okay, stop taking then denied by insurance company when represcribed Cimzia: March 2021-July 2021-restarted November 2021-DC summer 2022 lost to follow up Cimzia restarted 08/2023 effective Code(s): M05.9 - Rheumatoid arthritis with rheumatoid factor, unspecified Category: Medical Plan: #Seropositive Erosive RA Patient is a 44-year-old male with seropositive erosive rheumatoid arthritis here today for follow up. Currently in remission on Cimzia with no evidence of synovitis today. No tenderness to palpation of swelling. Plan - Cimzia 200mg SC every 2 weeks - RTC 6 months - Labs before visit: CBC, CMP, ESR, CRP, Hepatitis panel and T spot (2) Encounter for monitoring certolizumab therapy: Code(s): Z51.81 - Encounter for therapeutic drug level monitoring; Z79.620 - [facility] (current) use of immunosuppressive biologic Plan: #Long-term Use of TNF Inhibitors: Cimzia Discussed with the patient the benefits and risks of TNF inhibitors for the management of the rheumatic condition Benefits include reduce pain, maintenance of remission and reduction of flares as well as progression of the disease Risks include injection sites/infusion reactions, serious infections (such as bacterial infections, opportunistic infections), malignancy, delaminating syndromes, autoimmune phenomena, CHF exacerbations, palmar plantar psoriasis and cytopenias Recommended rotating injection sites, and holding medication during and for up to 1 week after resolution of a febrile illness or open skin wound Plan I spent 30 minutes reviewing the record and labs, taking a history, examining the patient, discussing the treatment plan, ordering diagnostic work up and documenting in the medical record Coding Level of Care Code Est Pt Level 4 (30999) Complex EM visit Add On G2211 Diagnoses Seropositive rheumatoid arthritis M05.9 Encounter for monitoring certolizumab therapy Z51.81; Z79.620
[2024-09-07 08:37] VITALS: BP 90/62; PULSE 68; O2SAT 98; BMI 22.7
== END 2024-09-07 09:08 | disposition home or self-care (01) ==
LOC: HO.RHE 08:13
PROVIDERS: PCP Internal Medicine Geriatric Medicine; Visit Provider Student in an Organized Health Care Education/Training Program
DX: M05.79 Rheumatoid arthritis with rheumatoid factor of multiple sites without organ or systems involvement (principal); Z51.81 Encounter for therapeutic drug level monitoring; Z79.620 Long term (current) use of immunosuppressive biologic
CPT/HCPCS: 99214